=== PATIENT | female | born 1980 | race Caucasian/White ===

== ENCOUNTER 2018-05-23 23:25 | Emergency (ER) | payer OTHER ==
[~2018-05-23] VITALS: Ht 172.7 cm; Wt 90.7 kg
[~2018-05-23 23:25] MED LIST: ACETAMINOPHEN-1 EAC1 PO; ALLERGY RELIEF10 M5 PO; AZITHROMYCIN 2250 MG; HYDROCODONE-ACE15 ML PO; IBUPROFEN 200200 M1 PO; PRILOSEC OTC20 MG PO
[2018-05-23] MEDS ORDERED: MEDROLDOSEPACK PO (23:55)
[2018-05-23] MEDS ORDERED: PENICILLIN VK500 MG PO (23:55)
[2018-05-24 00:20] VITALS: BP 103/61
== END 2018-05-24 00:20 | disposition home or self-care (01) ==
LOC: M.ERS 23:25
DX: J02.0 Streptococcal pharyngitis (principal); K21.9 Gastro-esophageal reflux disease without esophagitis; G47.30 Sleep apnea, unspecified; Z88.5 Allergy status to narcotic agent

== ENCOUNTER 2019-02-28 15:03 | Emergency (ER) | payer OTHER ==
[~2019-02-28] VITALS: Ht 172.7 cm; Wt 88.5 kg
[~2019-02-28 15:03] MED LIST changes: +MEDROLDOSEPACK PO; +PENICILLIN VK500 MG PO
[2019-02-28] MEDS ORDERED: PREDNISONE 20 M20 M1 PO (15:25)
[2019-02-28] MEDS ORDERED: ZPAK PO (15:25)
[2019-02-28] MEDS ORDERED: VENTOLIN HFA 1818 GM INH (15:25)
[2019-02-28 16:03] VITALS: BP 119/69
== END 2019-02-28 16:03 | disposition home or self-care (01) ==
LOC: M.ERS 15:03
DX: J40 Bronchitis, not specified as acute or chronic (principal); K21.9 Gastro-esophageal reflux disease without esophagitis; G47.30 Sleep apnea, unspecified; Z88.8 Allergy status to other drugs, medicaments and biological substances

== ENCOUNTER 2019-07-07 03:29 | Emergency (ER) | payer OTHER ==
[~2019-07-07] VITALS: Ht 172.7 cm; Wt 90.7 kg
[~2019-07-07 03:29] MED LIST changes: +PREDNISONE 20 M20 M1 PO; +VENTOLIN HFA 1818 GM INH; +ZPAK PO
[2019-07-07 04:28] LABS: ABSOLUTE BASOPHILS 0.1 thou/uL (0.0-0.2); ABSOLUTE EOSINOPHILS 0.1 thou/uL (0.0-0.7); ABSOLUTE MONOCYTES 0.8 thou/uL (0.0-1.2); ABSOLUTE NEUTROPHILS 8.2 thou/uL (1.6-8.1); BASOPHILS 0.5 %; EOSINOPHILS 0.7 %; HEMATOCRIT 32.7 % (37.0-47.0); HEMOGLOBIN 10.9 gm/dL (12.0-15.0); LYMPHOCYTES 17.7 %; MCH 26.4 pg (26.0-34.0); MCHC 33.2 g/dL (28.0-37.0); MCV 79.4 fL (80.0-100.0); MONOCYTES 7.1 %; MPV 7.5 fl. (7.2-11.1); NUCLEATED RBCS 0 /100WBC; PLATELET COUNT* 310 thou/uL (150-400); RBC 4.12 mil/uL (4.20-5.00); RDW-CV 14.9 % (10.5-14.5); WBC 11.1 thou/uL (4.0-11.0)
[2019-07-07 04:43] LABS: PROTIME 10.6 Seconds (9.20-11.50)
[2019-07-07 04:48] LABS: CALCIUM 7.2 mg/dL (8.5-10.1); CREATININE 0.9 mg/dL (0.6-1.3); POTASSIUM 3.3 mmol/L (3.5-5.1)
[2019-07-07 04:55] LABS: ALBUMIN 2.6 g/dL (3.4-5.0); TOTAL BILIRUBIN 1.2 mg/dL (<0.1-1.0); TOTAL PROTEIN 5.2 g/dL (6.4-8.2)
[2019-07-07 04:55] LABS: URINE BILIRUBIN NEGATIVE (Negative); URINE BLOOD NEGATIVE (Negative); URINE CLARITY CLEAR; URINE COLOR YELLOW; URINE GLUCOSE-RANDOM NEGATIVE (Negative); URINE KETONES NEGATIVE (Negative); URINE LEUKOCYTES-REFLEX 1+ (Negative); URINE NITRITE-REFLEX NEGATIVE (Negative); URINE PROTEIN NEGATIVE (Negative); URINE SPECIFIC GRAVITY >= 1.030 (1.005-1.030); URINE UROBILINOGEN 0.2 E.U./dl (0.2-1.0)
[2019-07-07 05:56] LABS: BACTERIA-REFLEX 1-9 Few /HPF (None Seen); CASTS None Seen /LPF (None Seen); CRYSTALS None Seen /LPF (None Seen); MUCUS >6 Heavy strn/LPF (None Seen); SQUAMOUS 4-10 Moderate /LPF (0-3); URINE RBC 0-2 Rare /HPF (0-2)
[2019-07-07] MEDS ORDERED: DOXYCYCLINE 10100 M2 PO (08:21)
[2019-07-07] MEDS ORDERED: NORCO 5-325 TA1 EAC1 PO (08:21)
[2019-07-07] MEDS ORDERED: ZOFRAN ODT4 MG DISSOLVE (08:21)
[2019-07-07 08:32] VITALS: BP 96/54
== END 2019-07-07 08:32 | disposition home or self-care (01) ==
LOC: M.ERS 03:29
PROVIDERS: Emergency Medicine
DX: N39.0 Urinary tract infection, site not specified (principal); K21.9 Gastro-esophageal reflux disease without esophagitis; G47.30 Sleep apnea, unspecified; Z88.5 Allergy status to narcotic agent

== ENCOUNTER 2021-02-18 22:59 | Emergency (ER) | payer BC ==
[~2021-02-18] VITALS: Ht 172.7 cm; Wt 86.2 kg
[~2021-02-18 22:59] MED LIST changes: +DOXYCYCLINE 10100 M2 PO; +NORCO 5-325 TA1 EAC1 PO; +ZOFRAN ODT4 MG DISSOLVE
[2021-02-19] MEDS ORDERED: IBUPROFEN 800800 MG PO (00:44)
[2021-02-19] MEDS ORDERED: AUGMENTIN 500-1 EACH PO (00:44)
[2021-02-19] MEDS ORDERED: HYDROCODON-ACE1 EAC7 PO (00:44)
[2021-02-19 01:02] VITALS: BP 131/85
== END 2021-02-19 01:02 | disposition home or self-care (01) ==
LOC: M.ERS 22:59
DX: L02.412 Cutaneous abscess of left axilla (principal); L73.2 Hidradenitis suppurativa; Z88.5 Allergy status to narcotic agent; K21.9 Gastro-esophageal reflux disease without esophagitis; Z98.890 Other specified postprocedural states

== ENCOUNTER 2021-03-10 18:29 | Emergency (ER) | payer BC ==
[~2021-03-10] VITALS: Ht 172.7 cm; Wt 87.1 kg
[~2021-03-10 18:29] MED LIST changes: +AUGMENTIN 500-1 EACH PO; +HYDROCODON-ACE1 EAC7 PO; +IBUPROFEN 800800 MG PO
[2021-03-10] MEDS ORDERED: BACTRIM DS TAB1 EAC1 PO (18:47)
[2021-03-10 20:22] LABS: ABSOLUTE BASOPHILS 0.1 thou/uL (0.0-0.2); ABSOLUTE EOSINOPHILS 0.1 thou/uL (0.0-0.7); ABSOLUTE MONOCYTES 0.5 thou/uL (0.0-1.2); ABSOLUTE NEUTROPHILS 4.4 thou/uL (1.6-8.1); BASOPHILS 0.8 %; EOSINOPHILS 2.1 %; HEMATOCRIT 35.1 % (37.0-47.0); HEMOGLOBIN 11.5 gm/dL (12.0-15.0); LYMPHOCYTES 27.6 %; MCH 25.6 pg (26.0-34.0); MCHC 32.7 g/dL (28.0-37.0); MCV 78.4 fL (80.0-100.0); MPV 7.7 fl. (7.2-11.1); NUCLEATED RBCS 0 /100WBC; PLATELET COUNT* 271 thou/uL (150-400); POLYS 62.5 %; RBC 4.48 mil/uL (4.20-5.00); RDW-CV 15.7 % (10.5-14.5); WBC 7.1 thou/uL (4.0-11.0)
[2021-03-10 20:31] LABS: CREATININE 0.9 mg/dL (0.6-1.3); POTASSIUM 3.9 mmol/L (3.5-5.1)
[2021-03-10 20:36] LABS: ALBUMIN 3.2 g/dL (3.4-5.0); TOTAL BILIRUBIN 0.7 mg/dL (<0.1-1.0); TOTAL PROTEIN 6.5 g/dL (6.4-8.2)
[2021-03-10] MEDS ORDERED: ZOFRAN ODT4 MG PO (21:17)
[2021-03-10] MEDS ORDERED: DOXYCYCLINE 10100 MG PO (21:17)
[2021-03-10 21:40] VITALS: BP 105/60
== END 2021-03-10 21:40 | disposition home or self-care (01) ==
LOC: M.ERS 18:29
PROVIDERS: Nurse Practitioner Family
DX: L02.412 Cutaneous abscess of left axilla (principal); R11.2 Nausea with vomiting, unspecified; K21.9 Gastro-esophageal reflux disease without esophagitis; G47.30 Sleep apnea, unspecified; Z88.5 Allergy status to narcotic agent